=== PATIENT | female | born 1950 | race Caucasian/White ===

== ENCOUNTER → 2017-11-29 | Outpatient (CLI) | payer MEDICARE, BC | END | disposition home or self-care (01) | LOC: HKI 13:33 | DX: M16.12 Unilateral primary osteoarthritis, left hip (principal); I10 Essential (primary) hypertension; Z96.652 Presence of left artificial knee joint; Z72.0 Tobacco use | CPT/HCPCS: 73502 ==

== ENCOUNTER 2018-07-29 08:31 | Observation (INO) | payer MEDICARE, BC ==
[~2018-07-29 08:31] MED LIST: KETAMINE (50 MG/ML) 10 ML VIAL; SUGAMMADEX SODIUM 200 MG/2 ML VIAL IV
[2018-07-29] MEDS ORDERED: FENTAnyl 50 MCG/ML VIAL (10:23)
[2018-07-29] MEDS ORDERED: MIDAZOLAM 1 MG/ML 2 ML INJ (10:24)
[2018-07-29] MEDS ORDERED: PROPOFOL 20 ML (10:25)
[2018-07-29] MEDS ORDERED: ROCURONIUM 50 MG INJ (10:26)
[2018-07-29] MEDS ORDERED: METOCLOPRAMIDE 10 MG INJ (10:27)
[2018-07-29] MEDS ORDERED: DEXAMETHASONE 4 MG/ML 1 ML INJ (10:27)
[2018-07-29] MEDS ORDERED: SUCCINYLCHOLINE CHLORIDE 100 MG/5 ML SYG IV (11:55)
[2018-07-29] MEDS ORDERED: LIDOCAINE 2% (SDV) 5 ML INJ (11:55)
[2018-07-29] MEDS: CEFAZOLIN 2 GM/50 ML (PMX) 50 ML IVPB (12:30)
[2018-07-29] MEDS ORDERED: DIPHENHYDRAMINE 50 MG INJ IV (13:00)
[2018-07-29] MEDS ORDERED: ONDANSETRON 4 MG INJ IV ×2 (13:00→17:30)
[2018-07-29] MEDS ORDERED: HYDROmorphONE 1 MG/5 ML IV SYRINGE IV ×3 (13:00)
[2018-07-29] MEDS ORDERED: MEPERIDINE 25 MG INJ IV (13:00)
[2018-07-29] MEDS ORDERED: hydrALAzine 20 MG INJ IV (13:00)
[2018-07-29] MEDS ORDERED: LABETALOL HCL 20MG INJ IV (13:00)
[2018-07-29] MEDS ORDERED: FENTAnyl 50 MCG/ML VIAL IV ×2 (13:00)
[2018-07-29] MEDS: GELATIN SIZE 100 SPONGE (13:37)
[2018-07-29] MEDS: THROMBIN 5000 UNIT VIAL (13:37)
[2018-07-29] MEDS: BUPIVACAINE 0.25%/EPI (SDV) 30 ML INJ (13:37)
[2018-07-29] MEDS ORDERED: HYDROmorphONE 2 MG/ML SYG (13:52)
[2018-07-29] MEDS ORDERED: METOPROLOL 5 MG INJ (13:53)
[2018-07-29] MEDS ORDERED: THROMBIN 5000 UNIT VIAL (16:24)
[2018-07-29] MEDS ORDERED: PROCHLORPERAZINE 10 MG TAB PO (17:30)
[2018-07-29] MEDS ORDERED: NACL 0.9% 3 ML SYG IV (17:30)
[2018-07-29] MEDS ORDERED: ACETAMINOPHEN 325 MG TAB PO (17:30)
[2018-07-29] MEDS ORDERED: NALOXONE (0.4 MG/ML) INJ IV (17:30)
[2018-07-29] MEDS ORDERED: AL HYDROX/MG HYDROX/SIMETH 30 ML CUP PO (17:30)
[2018-07-29] MEDS: CEFAZOLIN 1 GM/50 ML (PMX) 50 ML IVPB (18:02)
[2018-07-29] MEDS: HYDROmorphONE 0.2 MG/ML PCA IV (18:15)
[2018-07-29] MEDS: LEVALBUTEROL (NEB) 1.25 MG/0.5 ML AMP HHN (18:16)
[2018-07-29] MEDS: IPRATROPIUM (NEB) 0.5 MG/2.5 ML AMP HHN (18:16)
[2018-07-29] MEDS: LACTATED RINGER'S 1,000 ML IV* (20:29)
[2018-07-29] MEDS: LOSARTAN 50 MG TAB PO (20:52)
[2018-07-30] MEDS: CEFAZOLIN 1 GM/50 ML (PMX) 50 ML IVPB ×3 (00:03→11:37)
[2018-07-30] MEDS: ZOLPIDEM 5 MG TAB PO (00:06)
[2018-07-30 05:18] LABS: HEMOGLOBIN 11.9 g/dl (12.0-16.0)
[2018-07-30 05:51] LABS: ANION GAP 8 (5-13); BLOOD UREA NITROGEN 19 mg/dl (7-20); CALCIUM 8.7 mg/dl (8.4-10.2); CARBON DIOXIDE 27 mmol/L (21-31); CHLORIDE 104 mmol/L (97-110); Estimated GFR > 60 mL/min (>60); GLUCOSE 156 mg/dl (70-220); POTASSIUM 4.7 mmol/L (3.5-5.1); SODIUM 139 mmol/L (135-144)
[2018-07-30] MEDS ORDERED: HYDROmorphONE 0.5 MG/0.5 ML SYG IV (08:00)
[2018-07-30] MEDS: DOCUSATE SODIUM 100 MG CAP PO (08:45)
[2018-07-30] MEDS: HYDROCODONE/APAP (5/325) TAB PO ×2 (10:13→15:35)
== END 2018-07-30 16:12 | disposition home or self-care (01) ==
LOC: REC 08:31 → MS1 20:07
DX: M48.062 Spinal stenosis, lumbar region with neurogenic claudication (principal); M51.16 Intervertebral disc disorders with radiculopathy, lumbar region; M19.90 Unspecified osteoarthritis, unspecified site; I10 Essential (primary) hypertension; E78.5 Hyperlipidemia, unspecified; Z87.891 Personal history of nicotine dependence
CPT/HCPCS: 63030; 72110; 80048; 85014; 85018; 87086; 88304; 94664; 97116; 97161